=== PATIENT | female | born 1965 | race Two or more races ===

== ENCOUNTER 2016-11-01 20:36 | Emergency (ER) | payer OTHER ==
[~2016-11-01] VITALS: Ht 4 cm; Wt 57.6 kg
--- NOTE | 2016-11-01 20:50 | NUR ---
Pt c/o left sided chest pain, sharp in nature, and discomfort in left shoulder, hx pancreatitis and ulcer. Nausea present. Pt denies SOB, dizziness, no other complaints, no distress noted. Pt placed on monitor, EKG -- given to MD, IV 20g left AC, blood drawn and taken to lab.
[2016-11-01 20:53] LABS: BASOPHILS % (AUTO) 0.6 % (0.0-2.0); EOSINOPHILS # (AUTO) 0.1 K/uL (0.0-0.7); EOSINOPHILS % (AUTO) 1.2 % (0.0-7.0); HEMATOCRIT 37.9 % (37-47); HEMOGLOBIN 12.5 G/DL (12.0-16.0); LYMPHOCYTES # (AUTO) 3.5 K/UL (0.8-4.8); LYMPHOCYTES % (AUTO) 45.7 % (20.5-51.5); MEAN CORPUSCULAR HEMOGLOBIN 27.4 UUG (27.0-31.0); MEAN CORPUSCULAR HGB CONC 33 g/dL (32.0-37.0); MEAN CORPUSCULAR VOLUME 83.1 FL (81.0-99.0); MONOCYTES # (AUTO) 0.5 K/UL (0.1-1.30); NEUTROPHILS # (AUTO) 3.7 K/UL (1.8-8.9); NEUTROPHILS % (AUTO) 46.5 % (38.5-71.5); PLATELET COUNT (AUTO) 267 K/UL (150-450); RED BLOOD CELL COUNT(AUTO) 4.56 MIL/UL (4.2-5.4); WHITE BLOOD COUNT (AUTO) 7.8 K/UL (4.0-11.2)
[2016-11-01] MEDS ORDERED: LEVO50TA PO (20:56)
[2016-11-01] MEDS ORDERED: BUPR300T52 PO (20:56)
[2016-11-01] MEDS ORDERED: INSU100V7 SQ (20:56)
[2016-11-01] MEDS ORDERED: GLIP5TAB13 PO (20:56)
[2016-11-01] MEDS ORDERED: METF1000 PO (20:56)
[2016-11-01 21:00] LABS: CREATININE 0.7 mg/dL (0.6-1.3); POTASSIUM 4.4 mmol/L (3.5-5.1)
[2016-11-01] MEDS: PANTOPRAZOLE SODIUM 40 MG VIAL IV ONE (21:02)
[2016-11-01] MEDS: HYDROMORPHONE 1 MG/1 ML DISP.SYRIN IV ONE ×2 (21:02→21:41)
[2016-11-01] MEDS: ONDANSETRON 4 MG/2 ML VIAL IV ONE (21:02)
[2016-11-01 21:06] LABS: BILIRUBIN,DIRECT 0.1 mg/dL (0.0-0.2); BILIRUBIN,TOTAL 0.2 mg/dL (0.2-1.0); TOTAL PROTEIN, SERUM 7.6 g/dL (6.4-8.2)
[2016-11-01] MEDS ORDERED: ONDANSETRON 4 MG/2 ML VIAL ONE ×2 (21:07→21:49)
[2016-11-01] MEDS ORDERED: PANTOPRAZOLE SODIUM 40 MG VIAL ONE (21:07)
[2016-11-01] MEDS ORDERED: HYDROMORPHONE 2 MG/1 ML DISP.SYRIN ONE (21:07)
[2016-11-01] MEDS: IV NORMAL SALINE 1000 ML BAG IV ONE (21:09)
[2016-11-01] MEDS: ONDANSETRON IV *ER 4 MG/2 ML VIAL IV ONE (21:40)
[2016-11-01] MEDS ORDERED: HYDROMORPHONE 1 MG/1 ML DISP.SYRIN ONE (21:48)
--- NOTE | 2016-11-01 22:11 | NUR ---
IV removed intact, site okay, bandaged.
--- NOTE | 2016-11-01 22:42 | NUR ---
Gave pt d/c instructions, verbalized understanding.
== END 2016-11-01 22:35 | disposition home or self-care (01) ==
LOC: ER 20:36
DX: K21.0 Gastro-esophageal reflux disease with esophagitis (principal); K85.90 Acute pancreatitis without necrosis or infection, unspecified; Z79.4 Long term (current) use of insulin
CPT/HCPCS: 36415; 70030-TC; 71010; 83690; 85025; 85730; 93005; A4663; C9113; J1170; J2405; J7030